=== PATIENT | female | born 1960 | race American Indian/Alaskan Native ===

== ENCOUNTER 2017-12-18 07:35 | Outpatient (CLI) | payer OTHER ==
--- NOTE | 2017-12-18 09:52 | Mammography Report ---
Screening mammogram: Routine views demonstrate a heterogeneously dense and symmetrically distributed fibroglandular pattern. There is a biopsy marker in the superior medial right breast. Adjacent to the marker there is a small grouping of slightly pleomorphic appearing calcifications. Compared to prior exams dating back to 2016 and number of these calcifications has progressively increased. The breast pattern bilaterally has not otherwise changed. CAD used. Impression: Right breast calcifications. Recommendation: Right breast magnification views of focally increasing calcification. BI-RADS CATEGORY: 0 = Needs additional imaging evaluation ACR BI-RADS MAMMOGRAPHIC CODES: 0 = Needs additional imaging evaluation; 1 = Negative; 2 = Benign; 3 = Probably benign; 4 = Suspicious; 5 = Malignant; 6 = Known biopsy-proven malignancy COMMENT: 1. Dense breast tissue, i.e., adenosis, fibrocystic changes, etc., may obscure an underlying neoplasm. 2. Approximately 10% of cancers are not detected with mammography. 3. A negative mammography report should not delay biopsy if a clinically suspicious mass is present.
== END 2017-12-18 07:36 | disposition home or self-care (01) ==
LOC: MAMMO 07:35
PROVIDERS: ATTEND Family Medicine
DX: Z12.31 Encounter for screening mammogram for malignant neoplasm of breast (principal)
CPT/HCPCS: 77067

== ENCOUNTER 2018-01-05 08:02 | Outpatient (CLI) | payer OTHER ==
--- NOTE | 2018-01-05 09:25 | Ultrasound Report ---
RIGHT DIGITAL DIAGNOSTIC MAMMOGRAM and RIGHT BREAST ULTRASOUND: 01/05/18 CLINICAL: Recalled to evaluate calcifications. COMPARISON:12/18/17creening FINDINGS: Spot magnification CC and ML views demonstrate a cluster of approximately 5 calcifications at 12 o'clock approximately 10 cm from the nipple. Although the calcifications have increased in number since prior exams, no suspicious morphology. There is an adjacent biopsy clip and an irregular 1.7 cm asymmetry near the clip and calcifications. The asymmetry is only identified on the lateral spot. Ultrasound of the upper right breast was performed from 11 o'clock to 1 o'clock and demonstrated no mass or shadowing to correlate with the mammographic asymmetry. A biopsy clip is identified at 12 o'clock approximately 11 cm from the nipple. IMPRESSION: A probably benign asymmetry with probably benign calcifications near a remote biopsy site. BI-RADS CATEGORY: 3-Probably Benign RECOMMENDATION: 6 month followup right mammogram and ultrasound if needed. ACR BI-RADS MAMMOGRAPHIC CODES: 0 = Needs additional imaging evaluation; 1 = Negative; 2 = Benign; 3 = Probably benign; 4 = Suspicious; 5 = Malignant; 6 = Known biopsy-proven malignancy COMMENT: 1. Dense breast tissue, i.e., adenosis, fibrocystic changes, etc., may obscure an underlying neoplasm. 2. Approximately 10% of cancers are not detected with mammography. 3. A negative mammography report should not delay biopsy if a clinically suspicious mass is present. COMMENT: Patient follow-up letters are generated via our [employer] application.
== END 2018-01-05 08:03 | disposition home or self-care (01) ==
LOC: MAMMO 08:02
PROVIDERS: ATTEND Internal Medicine
DX: R92.1 Mammographic calcification found on diagnostic imaging of breast (principal)

== ENCOUNTER 2019-01-19 08:54 | Outpatient (CLI) | payer OTHER ==
--- NOTE | 2019-01-20 09:20 | Mammography Report ---
BILATERAL DIGITAL SCREENING MAMMOGRAM with CAD : 01/19/19 08:54:00 CLINICAL: Routine screening.Previous right benign biopsy. COMPARISON:01/05/18 and 12/18/17 FINDINGS: The breasts are heterogeneously dense, which may obscure small masses.A right upper biopsy clip with stable benign calcifications at the clip. No mass, architectural distortion or suspicious calcifications. IMPRESSION: No mammographic evidence of malignancy. BI-RADS CATEGORY: 2 -- Benign RECOMMENDATION: Routine mammographic screening in one year. COMMENT: Patient follow-up letters are generated by our [employer] application.
== END 2019-01-19 08:55 | disposition home or self-care (01) ==
LOC: MAMMO 08:54
PROVIDERS: ATTEND Family Medicine
DX: Z12.31 Encounter for screening mammogram for malignant neoplasm of breast (principal)
CPT/HCPCS: 77067

== ENCOUNTER 2020-03-29 09:21 | Outpatient (CLI) | payer OTHER ==
--- NOTE | 2020-03-29 13:28 | Mammography Report ---
DIGITAL SCREENING MAMMOGRAM WITH CAD, 03/29/2020 INDICATION: Routine screening mammography. SCRN MAMMO TECHNIQUE: Digital bilateral 2D mammography was obtained in the craniocaudal and mediolateral obliq ue projections. This examination was interpreted with the benefit of Computer-Aided Detection analysi s. COMPARISON: 01/19/2019 FINDINGS: Breast Density: The breasts are heterogeneously dense, which may obscure small masses. There is no evidence of dominant mass, suspicious calcifications or architectural distortion in eithe r breast. Benign-appearing calcifications are again seen on the right. IMPRESSION: No evidence of malignancy Follow up recommendation: Routine yearly BI-RADS Category 2: Benign. A "normal" or negative report should not discourage follow up or biopsy of a clinically significant f inding. A written summary of these findings will be mailed to the patient. The patient will be entered into a mammography reporting system which will generate a reminder letter for the patient's next appointmen t at the appropriate interval. The [employer] recommends yearly mammograms starting at age 40 and continuing as l sterling as a woman is in good health. Breast MRI is recommended for women with an approximate 20-25% or greater lifetime risk of breast cancer, including women with a strong family history of breast or ova ovi cancer or who have been treated for Hodgkin's disease. Signer Name: Mani Castro MD Signed: 03/29/2020 1:23 PM Workstation Name: [id number]
== END 2020-03-29 09:22 | disposition home or self-care (01) ==
LOC: MAMMO 09:21
PROVIDERS: ATTEND Nurse Practitioner Family
DX: Z12.31 Encounter for screening mammogram for malignant neoplasm of breast (principal)
CPT/HCPCS: 77067

== ENCOUNTER 2021-04-18 08:47 | Outpatient (CLI) | payer OTHER ==
--- NOTE | 2021-04-18 11:29 | Ultrasound Report ---
BILATERAL DIGITAL DIAGNOSTIC MAMMOGRAM WITH CAD , 04/18/2021 RIGHT LIMITED BREAST ULTRASOUND CLINICAL INFORMATION / INDICATION: F/U abnormal mammogram, palp lump right breast TECHNIQUE: Digital bilateral mammographic imaging was performed. Spot compression and magnification v iews were obtained. Limited ultrasound was performed. This examination was interpreted with the benef it of Computer-Aided Detection (CAD) analysis. COMPARISON: Prior mammogram 03/29/2020, 01/19/2019, 01/05/2018 as well as prior right breast ultrasound FINDINGS: Breast Density: The breasts are heterogeneously dense, which may obscure small masses. MAMMOGRAPHIC FINDINGS: No dominant mass, suspicious calcifications, or architectural distortion in th e left breast. The palpable lump corresponds to a 3 cm focal asymmetry in the superior right breast at approximately 12-1:00. Within this focal asymmetry, there is a biopsy clip on the periphery as well as grouped het erogeneous calcifications. Calcifications span a distance of 5 cm. The focal asymmetry has become sli ghtly more prominent and now has slightly irregular margins, warranting further evaluation with ultra sound. No other significant interval change is identified within either breast. ULTRASOUND FINDINGS: Targeted ultrasound evaluation was performed of the area of interest. Sonograp hic evaluation of the superior right breast in the area of the palpable lump does demonstrate a very irregular heterogeneous masslike area measuring approximately 4.1 x 2.0 x 5.3 cm. There is some minim al associated internal vascularity present. Additionally there is a second area of focal masslike area in the right breast at 1:00, 6 cm from nip ple, also corresponding to the palpable lump measuring 2.4 x 2.9 x 2.2 cm. Sonographic evaluation of the right axilla demonstrates at least one lymph node with minimal cortical thickening, measuring 5 mm. IMPRESSION: Abnormal mammographic and sonographic findings in the superior right breast at 12-1:00. R ecommend ultrasound-guided biopsy for further evaluation. The 12:00 area and 1:00 area should be targ eted for biopsy. Follow up recommendation: Biopsy BI-RADS Category 4: Suspicious for Malignancy. A "normal" or negative report should not discourage follow up or biopsy of a clinically significant f inding. A written summary of these findings will be mailed to the patient. The patient will be entered into a mammography reporting system which will generate a reminder letter for the patient's next appointmen t at the appropriate interval. According to the [employer], yearly mammograms are recommended starting at age 40 and continuing as long as a woman is in good health. Breast MRI is recommended for women with an marjorie roximately 20-25% or greater lifetime risk of breast cancer, including women with a strong family his tory of breast or ovarian cancer and women who have been treated for Hodgkin's disease. Signer Name: Noemy Benedict MD Signed: 04/18/2021 11:24 AM Workstation Name: [id number]
== END 2021-04-18 08:48 | disposition home or self-care (01) ==
LOC: MAMMO 08:47
DX: N63.10 Unspecified lump in the right breast, unspecified quadrant (principal)
CPT/HCPCS: 77066

== ENCOUNTER 2021-05-15 08:09 | Outpatient (CLI) | payer OTHER ==
--- NOTE | 2021-05-15 09:35 | Ultrasound Report ---
ULTRASOUND GUIDED RIGHT BREAST BIOPSY, 05/15/2021 CLINICAL INFORMATION / INDICATION: LUMP RT BREAST. COMPARISON: Recent right diagnostic mammogram and right breast ultrasound 04/18/2021 PROCEDURE: Risks, benefits, and indications to the procedure were discussed with the patient in detail, includin g bleeding, infection, hematoma formation, and inadequate tissue sampling. The patient agreed to proc eed with both verbal and written consent. A timeout procedure was performed with two patient identifi ers. The breast was prepped and draped in the usual sterile fashion. Lidocaine 1% with and without epineph rine were used for local anesthesia. Under direct ultrasound guidance, multiple core samples were obt ained of the focal asymmetry in the 12:00 position, right breast. Focal asymmetry/mass appeared less prominent on today's exam compared to prior ultrasound.. Patient also stated her palpable lump appear ed less prominent, as well. A biopsy marker was then placed. Biopsy device was removed and hemostasis achieved with manual pressure. A sterile dressing was applied to the skin. The patient tolerated the procedure without difficulty. No complications were encountered. Postbiopsy instructions were discussed with the patient and given in writing. Specimens were sent to pathology. IMPRESSION: 1. Technically successful ultrasound guided right breast biopsy at 12:00, middle depth. Biopsy results are pending and will be reported in an addendum. Signer Name: Noemy Benedict MD Signed: 05/15/2021 9:31 AM Workstation Name: [id number]
--- NOTE | 2021-05-15 09:39 | Mammography Report ---
DIGITAL DIAGNOSTIC MAMMOGRAM WITH CAD , 05/15/2021 CLINICAL INFORMATION / INDICATION: Postprocedure mammogram following right ultrasound-guided biopsy P OST UX BX TECHNIQUE: Digital right mammographic imaging was performed. This examination was interpreted with the benefit of Computer-aided Detection analysis. COMPARISON: Ultrasound-guided biopsy performed today as well as prior mammogram 04/18/2021 FINDINGS: Breast Density: The breasts are heterogeneously dense, which may obscure small masses. Postprocedure mammogram following ultrasound-guided biopsy does not demonstrate the clip to have depl oyed properly within the breast during biopsy procedure. There is a biopsy clip in the same general a fatoumata from a remote biopsy. IMPRESSION: Postprocedure mammogram. The biopsy clip did not deploy. Biopsy changes are seen just sli ghtly anterior to the older clip in the 12:00 region, middle depth. Follow up recommendation: Awaiting pathology results. Post biopsy imaging. A "normal" or negative report should not discourage follow up or biopsy of a clinically significant f inding. A written summary of these findings will be mailed to the patient. The patient will be entered into a mammography reporting system which will generate a reminder letter for the patient's next appointmen t at the appropriate interval. According to the [employer], yearly mammograms are recommended starting at age 40 and continuing as long as a woman is in good health. Breast MRI is recommended for women with an marjorie roximately 20-25% or greater lifetime risk of breast cancer, including women with a strong family his tory of breast or ovarian cancer and women who have been treated for Hodgkin's disease. Signer Name: Noemy Benedict MD Signed: 05/15/2021 9:34 AM Workstation Name: [id number]
== END 2021-05-15 08:10 | disposition home or self-care (01) ==
LOC: SPVWC 08:09
PROVIDERS: ATTEND Internal Medicine
DX: N63.11 Unspecified lump in the right breast, upper outer quadrant (principal); R92.8 Other abnormal and inconclusive findings on diagnostic imaging of breast
CPT/HCPCS: 88305; 88341; 88342